=== PATIENT | female | born 1935 | race Caucasian/White ===

== ENCOUNTER 2016-10-09 11:04 | Emergency (ER) | payer MEDICARE, BC ==
[~2016-10-09 11:04] MED LIST: ALENDRONATE SOD70 MG PO; ASPIR 8181 MG; BABY ASPIRIN81 MG PO; CALCIUM 500 +1 EAC2 PO; CALCIUM WITH VI1 TAB; ENABLEX; FLAX SEED OIL1000 MG PO; FLONASE16 GM NS; HYDROXYZINE HCL25 MG; MULTIVITAMIN1 TAB; OMEPRAZOLE20 MG; OSTEO BI-FLEX; PRAVACHOL20 MG PO; PREDNISONE10 MG; PRILOSEC20 MG PO; SULFAMETHOXAZOL1 TAB; TRAMADOL HCL50 M1 PO; ZETIA10 MG; ZYRTEC10 M1 PO
[2016-10-09 13:02] LABS: BASO % 0.3 % (0-2); EOS % 3.2 % (0-7); EOSINOPHIL ABSOLUTE COUNT 0.4 tho/cmm (0.0-0.7); HCT-HEMATOCRIT 41.1 % (34.0-49.0); HGB-HEMOGLOBIN 13.8 gm/dl (12.0-15.5); IMMATURE GRANULOCYTES ABSOLUTE 0.02 tho/cmm (0-0.03); IMMATURE GRANULOCYTES PERCENT 0.2 % (0-0.3); LYMPH % 18.7 % (20-45); LYMPH ABSOLUTE COUNT 2.2 tho/cmm (0.8-4.5); MCH (MEAN CORPUSCULAR HGB) 30.4 pg (28.0-32.0); MCHC MEAN CORPUSCULAR HGB CONC 33.6 % (32.0-36.0); MCV (MEAN CELL VOLUME) 90.5 fl (82.0-96.0); MEAN PLATELET VOLUME 9.5 cmc (9.4-12.4); MONOCYTE ABSOLUTE COUNT 0.8 tho/cmm (0.0-1.2); NEUTROPHIL ABSOLUTE COUNT 8.3 tho/cmm (1.6-8.0); NEUTROPHIL-AUTOMATED 8.3 tho/cmm (1.6-8.0); NEUTROPHILS % 70.6 % (40-80); PLATELET COUNT 215 tho/cmm (150-450); RED BLOOD COUNT 4.54 mil/cmm (4.00-5.20); RED CELL DISTRIBUTION WIDTH 13.4 % (12.4-16.4); WHITE BLOOD COUNT 11.8 tho/cmm (4.0-10.0)
[2016-10-09 13:10] LABS: ANION GAP 13 mmol/L (0-20); BLOOD UREA NITROGEN 13 mg/dl (6-24); CALCIUM 8.8 mg/dl (8.5-10.5); CARBON DIOXIDE-VENOUS 26 mmol/L (22-32); CHLORIDE 105 mmol/l (96-110); GLUCOSE 94 mg/dL (70-110); POTASSIUM 3.6 mmol/L (3.7-5.1); SODIUM 140 mmol/L (135-145); eGFR VALUE FOR BLACK >90 mL/Min
[2016-10-09] MEDS ORDERED: BACLOFEN10 M1 PO ×2 (13:18→13:27)
[2016-10-09] MEDS ORDERED: OMEPRAZOLE20 M3 PO (13:18)
[2016-10-09] MEDS ORDERED: ASPIRIN81 M1 PO (13:19)
[2016-10-09] MEDS ORDERED: DETROL LA4 M1 PO (13:19)
[2016-10-09] MEDS ORDERED: MOBIC7.5 M2 PO (13:19)
[2016-10-09] MEDS ORDERED: ALDACTONE25 M1 PO (13:19)
[2016-10-09] MEDS ORDERED: CALTRATE 600 +1 EAC2 PO (13:20)
[2016-10-09] MEDS ORDERED: CITRATE OF MAG300 M1 PO (13:21)
[2016-10-09] MEDS ORDERED: FLAX OIL1000 M1 PO (13:21)
[2016-10-09] MEDS ORDERED: VITAMIN B122500 MC1 PO (13:21)
[2016-10-09] MEDS ORDERED: PROBIOTIC1 EA10 PO (13:22)
[2016-10-09] MEDS ORDERED: COQ-10100 M1 PO (13:22)
[2016-10-09] MEDS ORDERED: CLARINEX5 M1 PO (13:23)
[2016-10-09] MEDS ORDERED: FIBER0.52 GM PO (13:23)
[2016-10-09] MEDS ORDERED: FLONASE ALLERG9.9 ML (13:23)
[2016-10-09] MEDS ORDERED: TYLENOL EXTRA500 M1 PO (13:24)
[2016-10-09] MEDS ORDERED: MUCINEX600 M1 PO (13:24)
[2016-10-09] MEDS ORDERED: TRIAMCINOLONE A15 G2 TP (13:25)
[2016-10-09] MEDS ORDERED: CICLOPIROX (13:26)
[2016-10-09] MEDS ORDERED: PROMETHAZINE-C118 ML PO (14:00)
[2016-10-09] MEDS ORDERED: AUGMENTIN 875-1 EAC2 PO (14:01)
== END 2016-10-09 14:28 ==
LOC: EDMED 11:04
PROVIDERS: Emergency Medicine
DX: J40 Bronchitis, not specified as acute or chronic (principal); J32.9 Chronic sinusitis, unspecified; K21.9 Gastro-esophageal reflux disease without esophagitis; Z90.710 Acquired absence of both cervix and uterus; Z87.891 Personal history of nicotine dependence; Z79.82 Long term (current) use of aspirin; Z79.899 Other long term (current) drug therapy